=== PATIENT | male | born 1965 | race American Indian/Alaskan Native ===

== ENCOUNTER 2021-04-09 13:41 | Emergency (ER) | payer MEDICARE ==
[2021-04-09 14:37] VITALS: BP 99/62
--- NOTE | 2021-04-09 15:14 | Emergency Department Report ---
Abscess Boil HPI <NANOARMANDOAlejandro Fleming - Last Filed: 04/09/21 15:30> - HPI Duration: Today Location: Other (Buttocks area) Severity: Severe History: Yes Pain, Yes Purulent Drainage, No Fever, No Numbness, No Foreign Body, No Previous History, No Insect Bite HPI: 55-year-old male with a history of seizure disorder was brought to the ER today by his costumed character entertainer with complaints of abscess/wound to his buttock. Plastic Cutter reports that patient started complaining about the area yesterday, and when he looked, they noticed that there was pus drainage and swelling. Plastic Cutter reports that he did take patient to his PCP yesterday and patient was prescribed Keflex 500 mg to take for 14 days. Plastic Cutter reports that the area still draining, but he brought him in today because he is complaining of pain. Plastic Cutter reports that patient does sit a lot, but they have not noticed any past ulcerations to the area in the past and denies any history of abscesses in the past. He denies any fever or chills. <GILES MCKEON - Last Filed: 04/09/21 15:50> - HPI Chief Complaint: Skin/Abscess/Foreign Body Stated Complaint: BOIL Time Seen by Provider: 04/09/21 15:12 Home Medications: Home Medications Medication Instructions Recorded Confirmed Last Taken PHENobarbitaL [Phenobarbital] 32.4 mg PO DAILY 12/28/20 12/28/20 12/25/20 10:00 PHENobarbitaL [Phenobarbital] 97.2 mg PO BID 12/28/20 12/28/20 12/25/20 10:00 Phenobarbital 200 mg PO TID 12/28/20 12/28/20 12/25/20 10:00 Triamazole 1%-0.1% Combo Pack 0.1 cream TP BID 12/28/20 12/28/20 12/25/20 10:00 carBAMazepine XR 16.2 mg PO DAILY 12/28/20 12/28/20 12/25/20 16.2 Previous Rx's Medication Instructions Recorded Last Taken Type Ibuprofen [Motrin] 600 mg PO Q8H PRN #30 tablet 04/09/21 Unknown Rx Sulfamethoxazole/Trimethoprim 1 each PO BID #14 tablet 04/09/21 Unknown Rx [Bactrim DS TAB] Allergies/Adverse Reactions: Allergies Allergy/AdvReac Type Severity Reaction Status Date / Time No Known Allergies Allergy Unverified 04/09/21 14:37 ED Review of Systems ROS: Stated complaint: BOIL Other details as noted in HPI <NANOARMANDOAlejandro Fleming - Last Filed: 04/09/21 15:30> ROS: Stated complaint: BOIL Other details as noted in HPI Comment: All other systems reviewed and negative Constitutional: denies: chills, fever Respiratory: denies: cough, shortness of breath, SOB with exertion, SOB at rest, wheezing Cardiovascular: denies: chest pain, palpitations Skin: other (Abscess/ulceration to buttocks.) <GILES MCKEON - Last Filed: 04/09/21 15:50> ED Past Medical Hx <NANOFIELDARMANDOAlejandro Fleming - Last Filed: 04/09/21 15:30> - Past Medical History Previous Medical History?: Yes Hx Diabetes: Yes Hx Seizures: Yes Additional medical history: eczema, hypermetropia/astigmatisn, presyopia, 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, Cusgings Syndrome - Social History Smoking Status: Never Smoker <GILES MCKEON - Last Filed: 04/09/21 15:50> - Medications Home Medications: Home Medications Medication Instructions Recorded Confirmed Last Taken Type PHENobarbitaL [Phenobarbital] 32.4 mg PO DAILY 12/28/20 12/28/20 12/25/20 10:00 History PHENobarbitaL [Phenobarbital] 97.2 mg PO BID 12/28/20 12/28/20 12/25/20 10:00 History Phenobarbital 200 mg PO TID 12/28/20 12/28/20 12/25/20 10:00 History Triamazole 1%-0.1% Combo Pack 0.1 cream TP BID 12/28/20 12/28/20 12/25/20 10:00 History carBAMazepine XR 16.2 mg PO DAILY 12/28/20 12/28/20 12/25/20 History 16.2 Ibuprofen [Motrin] 600 mg PO Q8H PRN #30 tablet 04/09/21 Unknown Rx Sulfamethoxazole/Trimethoprim 1 each PO BID #14 tablet 04/09/21 Unknown Rx [Bactrim DS TAB] ED Abscess Boil Physical Exam - Exam General: Vital signs noted. No distress. Alert and acting appropriately. <YVES MELVIN - Last Filed: 04/09/21 15:30> - Exam General: Vital signs noted. No distress. Alert and acting appropriately. Exam: Yes Tenderness, No Fluctuance, No Surrounding Cellulites/Erythema, No Lymphangitis, No Crepitation, No Heart Murmur, No Normal Neurologic Exam, No Normal Circulation Exam: Medium size open wound/ulceration noted to the pilonidal area, small amount of pus drainage and just below it is a fluctuant area about the size of a silver dollar, already draining small amount of pus. There is no significant surrounding cellulitis or lymphangitis. Mild tenderness to palpation to those areas. No extension into the rectum. <GILES MCKEON - Last Filed: 04/09/21 15:50> ED Course Vital Signs 04/09/21 14:35 Temperature 98.2 F Pulse Rate 83 Respiratory 16 Rate Blood Pressure 99/62 [Left] O2 Sat by Pulse 99 Oximetry <ARIANLoretaMARJORIE ANGELDoug Fleming - Last Filed: 04/09/21 15:30> Vital Signs 04/09/21 14:35 Temperature 98.2 F Pulse Rate 83 Respiratory 16 Rate Blood Pressure 99/62 [Left] O2 Sat by Pulse 99 Oximetry <GILES MCKEON - Last Filed: 04/09/21 15:50> Critical care attestation.: If time is entered above; I have spent that time in minutes in the direct care of this critically ill patient, excluding procedure time. <NGOZIARMANDO' M - Last Filed: 04/09/21 15:30> Critical care attestation.: If time is entered above; I have spent that time in minutes in the direct care of this critically ill patient, excluding procedure time. <GILES MCKEON - Last Filed: 04/09/21 15:50> ED Medical Decision Making - Medical Decision Making Patient has an already draining abscess to the buttocks area, one of which has formed into the shallow ulcerated area. There is no associated cellulitis, significant lymphangitis and no extension into the rectal area. He does not appear toxic or ill-appearing. He is afebrile. He is neurologically intact with a normal gait. He is currently on Keflex which he was prescribed by his PCP for same abscess. According to costumed character entertainer he has started taking it since yesterday. At this time there is no further emergent intervention needed. Informed costumed character entertainer to continue the Keflex and will add Bactrim to cover for MRSA in discussed proper wound care. He will also be given referral to local wound care clinic. He will be given ibuprofen to help with pain. Plastic Cutter expressed understanding of instructions and agree with plan. Patient was stable at time of discharge. <GILES MCKEON - Last Filed: 04/09/21 15:50> ED Disposition <NGOZIARMANDOAlejandro Fleming - Last Filed: 04/09/21 15:30> Is pt being admited?: No Does the pt Need Aspirin: No <GILES MCKEON - Last Filed: 04/09/21 15:50> Clinical Impression: Abscess of buttock, Decubitus ulcer of buttock Disposition: 01 HOME / SELF CARE / HOMELESS Condition: Stable Instructions: Skin Abscess, [id number], Wound Infection, [id number], Wound Care, Adult Additional Instructions: Recommend to keep the wound clean daily with soap and water. Do not use peroxide or alcohol. Do the wet-to-dry dressing as instructed in the ER. Continue the Keflex, but I also recommend that patient start the Bactrim, and give the ibuprofen as prescribed for pain. Recommend close follow-up with the wound care clinic for further evaluation and treatment of the areas. Return to the ER patient develops any fever or if there develops any significant redness and swelling to the area. Prescriptions: Sulfamethoxazole/Trimethoprim [Bactrim DS TAB] 1 each PO BID #14 tablet Ibuprofen [Motrin] 600 mg PO Q8H PRN #30 tablet PRN Reason: Pain Referrals: PRIMARY CARE,MD [Primary Care Provider] - 3-5 Days [facility]Outside[facility] - 3-5 Days
== END 2021-04-09 16:27 | disposition home or self-care (01) ==
LOC: ED 13:41
DX: L02.31 Cutaneous abscess of buttock (principal); L89.309 Pressure ulcer of unspecified buttock, unspecified stage; Z79.899 Other long term (current) drug therapy
CPT/HCPCS: 99282